=== PATIENT | female | born 1995 | race Hispanic/Latino ===

== ENCOUNTER 2018-10-07 11:42 | Emergency (ER) | payer SELFPAY ==
[2018-10-07 13:05] LABS: #Eosinphils 0.1 thou/uL (0.0-0.7); #Lymphocytes 1.8 thou/uL (1.20-3.40); #Monocytes 0.5 thou/uL (0.11-0.59); #Neutrophils 4.2 thou/uL (1.40-6.50); %Basophils 0.1 % (0.0-1.0); %Eosinophils 0.8 % (0.0-10.0); %Lymphocytes 27.9 % (21.0-51.0); %Monocytes 7.3 % (0.0-10.0); %Neutrophils 63.9 % (42.0-75.0); Hemoglobin 12.9 g/dL (12.0-16.0); Mean Corpuscular HGB CONC 34.8 g/dL (32.0-36.0); Mean Corpuscular Volume 91.8 fL (78.0-98.0); Mean Platelet Volume 8.6 fL (7.4-10.4); Platelet Count 190 thou/uL (130-400); RBC Distribution Width 10.8 % (11.5-14.5); Red Blood Cell (RBC) Count 4.05 mill/uL (4.20-5.40); White Blood Cell (WBC) Count 6.5 thou/uL (4.8-10.8)
[2018-10-07 13:09] LABS: BHCG - Serum Negative (NEGATIVE); Pregs Control Background? CLEAR/WHITE (CLR/WHITE); Pregs Control Bar Appear? YES (CONTROL BAR)
[2018-10-07 13:37] LABS: Bilirubin Negative (Negative); Blood, Urine Negative (Negative); Clarity CLEAR (Clear); Glucose, Urine (Dipstick) Negative (Negative); Leukocyte Negative (Negative); Nitrite Negative (Negative); Protein, Urine (Dipstick) Negative (Neg-Trace); Specific Gravity, Urine 1.025 (1.002-1.036); Urobilinogen 0.2 mg/dL (0.2-1.0)
[2018-10-07 13:39] LABS: Pregnancy Test - Urine (BHCG) Negative (Negative); Specific Gravity 1.025 (1.002-1.036)
[2018-10-07 13:40] LABS: Pregu Control Background? CLEAR/WHITE (CLR/WHITE); Pregu Control Bar Appear? YES (CONTROL BAR)
--- NOTE | 2018-10-07 15:08 | RAD ---
AP view pelvis. HISTORY: Questionable position of IUD. AP view pelvis obtained. Intrauterine device seen over the right mid pelvic region. This is not an an unusual position. The there is a genital piercing also visualized. No other significant abnormality seen. No osseous lesions seen. IMPRESSION: intrauterine device appears to be just to the right of midline.
== END 2018-10-07 15:29 | disposition home or self-care (01) ==
LOC: ERS 11:42
DX: N93.9 Abnormal uterine and vaginal bleeding, unspecified (principal); F41.9 Anxiety disorder, unspecified
CPT/HCPCS: 36415; 72170; 81003; 81025; 84703; 85025